=== PATIENT | female | born 1960 | race Two or more races ===

== ENCOUNTER 2019-08-11 01:15 | Emergency (ER) | payer SELFPAY ==
[~2019-08-11] VITALS: Ht 160 cm; Wt 68.0 kg
[2019-08-11 03:03] VITALS: BP 100/64
== END 2019-08-11 03:23 | disposition home or self-care (01) ==
LOC: EDBD 01:15 → ER 01:19
DX: S33.5XXA Sprain of ligaments of lumbar spine, initial encounter (principal); X58.XXXA Exposure to other specified factors, initial encounter; Y93.89 Activity, other specified; Y92.89 Other specified places as the place of occurrence of the external cause; Y99.8 Other external cause status
CPT/HCPCS: 72100